=== PATIENT | male | born 2000 | race Caucasian/White ===

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

== ENCOUNTER 2020-08-26 19:35 | Emergency (ER) | payer OTHER, BC, SELFPAY ==
[2020-08-26 19:53] VITALS: RESP 18; TEMP 36.5; O2SAT 99; BMI 18.6
--- NOTE | 2020-08-26 20:04 | HMH.EDUTC ---
[facility] [place] Clinical Impression: Burn of left leg Qualifiers: Encounter type: initial encounter Burn degree: partial thickness (2nd degree) Qualified Code(s): T24.202A - Burn of second degree of unspecified site of left lower limb, except ankle and foot, initial encounter Disposition: Home, Self-Care Condition on Discharge: Good Instructions: DI for Lakhani, Mupirocin Additional Instructions: Keep the wound clean and dry. Follow up with your primary care physician. You need to have the wound rechecked within the next 48 to 72 hours. Apply the topical medication and take the oral medication as directed. GO TO THE ER FOR ANY WORSENING SYMPTOMS OR CONCERN, ESPECIALLY ANY FEVER, CHILLS, AND OTHER SIGNS OF INFECTION Prescriptions: Sulfamethoxazole/Trimethoprim [Bactrim DS tablet] 1 each PO BID 10 Days #20 tab Transmission Status: Received by [facility] #[id number] Mupirocin [Bactroban 2% Ointment 22gm tube] 1 applicatio TP TID 7 Days #1 tube Transmission Status: Received by [facility] #[id number] cephALEXin [cephALEXin 500mg capsule] 500 mg PO Q6H 10 Days #40 cap Transmission Status: Received by [facility] #[id number] Referrals: Sanjay Rebollar MD [Primary Care Provider] - Forms: Work/School Release Time of Disposition: 20:19 Medical Decision Making - Medical Records Medical records reviewed: No: I reviewed the patient's medical records. - Javy Inquiry Pt receiving controlled substance: No Vital Signs: 08/26/20 19:53 08/26/20 20:25 Temperature 97.7 F 97.6 F Temperature Source Oral Oral Pulse Rate 86 Respiratory Rate 18 18 Blood Pressure 124/86 02 Sat by Pulse Oximetry 99 Oxygen Delivery Method Room Air Room Air Orders (Tests/Meds): ED MEDICATIONS Discontinued Medications Generic Name Dose Route Start Last Admin Trade Name Freq PRN Reason Stop Dose Admin Trimethoprim/Sulfamethoxazole 1 each 08/26/20 20:22 08/26/20 20:24 Sulfa/Trimethoprim 1 Tablet PO 08/26/20 20:23 1 each ONCE ONE Administration Protocol ORDERS Category Date Time Status Wound Culture and Gram Stain Stat Micro 08/26/20 20:20 Results [facility] [place] - General Stated complaint: possible infection in burn on L leg Time Seen by Provider: 08/26/20 20:04 Mode of Arrival: Ambulatory Source of Information: Patient Limitations: No Limitations Description of Symptoms (Recalled from Triage Doc. by RN): burn on leg from last wednesday, worried may be infected HEENT Symptoms (Recalled from RN notes): No Resp Symptoms (Recalled from RN notes): No Skin Symptoms (Recalled from RN notes): Yes MS Symptoms (Recalled from RN notes): No Functional Status (Recalled from RN notes): na - History of Present Illness Provider Complaint: He states that he bumped into a very hot pipe with his left lower leg 4 days ago. He c/o redness and clear drainage at the site. He denies any fever or chills. - Related Data Home Medications Medication Instructions Recorded Confirmed Lisdexamfetamine Dimesylate 70 mg PO DAILY 09/10/19 09/10/19 [Vyvanse] Previous Rx's Medication Instructions Recorded Mupirocin [Bactroban 2% Ointment 1 applicatio TP TID 7 Days #1 tube 08/26/20 22gm tube] Sulfamethoxazole/Trimethoprim 1 each PO BID 10 Days #20 tab 08/26/20 [Bactrim DS tablet] cephALEXin [cephALEXin 500mg 500 mg PO Q6H 10 Days #40 cap 08/26/20 capsule] Allergies Allergy/AdvReac Type Severity Reaction Status Date / Time No Known Allergies Allergy Unverified 04/27/17 14:02 - Worker's Comp Is this a Worker's Comp case?: No [facility] History - Hepatitis A Screen Drug use history?: No High risk sexual behaviors?: No History of sexually transmitted infection?: No Currently employed?: No Childcare worker?: No Do you have indoor plumbing?: Yes Do you have electricity?: Yes Attestation statement:: This patient has been screened for Hepatitis A risk factors. I have
[2020-08-26 20:25] VITALS: BP 124/86; PULSE 86; RESP 18; TEMP 36.4; O2SAT 99
== END 2020-08-26 20:28 | disposition home or self-care (01) ==
PROVIDERS: Emergency Provider Nurse Practitioner Family; PCP Pediatrics
DX: T24.202A Burn of second degree of unspecified site of left lower limb, except ankle and foot, initial encounter (principal); X16.XXXA Contact with hot heating appliances, radiators and pipes, initial encounter; Y92.9 Unspecified place or not applicable
CPT/HCPCS: 87070; 87077; 87186; 87205; 99202; G0463

== ENCOUNTER 2020-10-27 13:35 | Emergency (ER) | payer OTHER, BC, SELFPAY ==
[2020-10-27 14:03] VITALS: BP 138/87; PULSE 82; RESP 20; TEMP 36.9; O2SAT 96; BMI 18.6
[2020-10-27 14:12] VITALS: BP 138/87; PULSE 82; RESP 20; TEMP 36.9
--- NOTE | 2020-10-27 14:12 | HMH.EDUTC ---
[facility] [place] Dis[place] Clinical Impression: Burn Disposition: Home, Self-Care Condition on Discharge: Good Instructions: Minor Lakhani (Alternative Therapy), DI for Lakhani, How to Take Care of a Burn Additional Instructions: apply cream clean area bid and apply cream take antibiotics as ordered if any concerns return or be een in ed follow up with pcp Prescriptions: cephALEXin [Cephalexin 500mg Tab] 500 mg PO BID 7 Days #14 tab Prescription Printed Silver Sulfadiazine [Silvadene Cream 50gm] 50 gm TP BID 14 Days #1 bottle Prescription Printed Referrals: Sanjay Rebollar MD [Primary Care Provider] - Forms: Work/School Release Time of Disposition: 14:17 Medical Decision Making - Javy Inquiry Pt receiving controlled substance: No Vital Signs: 10/27/20 14:03 Temperature 98.4 F Temperature Source Oral Pulse Rate [Right] 82 Respiratory Rate 20 Blood Pressure [Right Arm] 138/87 Blood Pressure Mean [Right Arm] 104 Blood Pressure Source [Right Arm] Automatic Cuff Blood Pressure Position [Right Arm] Sitting 02 Sat by Pulse Oximetry 96 [facility] [place] HPI - General Chief complaint: Urgent [facility] Center Stated complaint: a/o 10/26/2020 10:30 pm at work Time Seen by Provider: 10/27/20 14:12 Mode of Arrival: Ambulatory Source of Information: Patient Limitations: No Limitations Description of Symptoms (Recalled from Triage Doc. by RN): pt has a burn on the top of his R foot and his last two toes. pt staes a steam table at work burnt him. pt requests a work note. HEENT Symptoms (Recalled from RN notes): No Resp Symptoms (Recalled from RN notes): No Skin Symptoms (Recalled from RN notes): Yes (burn on top portion of right foot) MS Symptoms (Recalled from RN notes): No Functional Status (Recalled from RN notes): na - History of Present Illness Provider Complaint: 19 yr old male presents for a burn on the top of his R foot and his last two toes. pt states a steam table at work burnt him. Pt states he has been putting silvatine cream on the burn. pt requests a work note. - Related Data Home Medications Medication Instructions Recorded Confirmed Lisdexamfetamine Dimesylate 70 mg PO DAILY 09/10/19 09/10/19 [Vyvanse] Previous Rx's Medication Instructions Recorded Mupirocin [Bactroban 2% Ointment 1 applicatio TP TID 7 Days #1 tube 08/26/20 22gm tube] Sulfamethoxazole/Trimethoprim 1 each PO BID 10 Days #20 tab 08/26/20 [Bactrim DS tablet] cephALEXin [cephALEXin 500mg 500 mg PO Q6H 10 Days #40 cap 08/26/20 capsule] Silver Sulfadiazine [Silvadene 50 gm TP BID 14 Days #1 bottle 10/27/20 Cream 50gm] cephALEXin [Cephalexin 500mg Tab] 500 mg PO BID 7 Days #14 tab 10/27/20 Allergies Allergy/AdvReac Type Severity Reaction Status Date / Time No Known Allergies Allergy Verified 10/27/20 14:06 - Worker's Comp Is this a Worker's Comp case?: No [facility] History - Hepatitis A Screen Drug use history?: No High risk sexual behaviors?: No History of sexually transmitted infection?: No Currently employed?: No Childcare worker?: No Do you have indoor plumbing?: Yes Do you have electricity?: Yes Attestation statement:: This patient has been screened for Hepatitis A risk factors. I have reviewed the patient's past medical history: Yes Medical History: Denies:: Diabetes Mellitus Type 1, Diabetes Mellitus Type 2 - Social History Alcohol Intake: never Substance Use Type: inhalants Occupational Status: unemployed ROS Obtained: Yes Systems reviewed as appropriate & no additional complaints - Constitutional Constitutional: Reports system reviewed and no additional complaints, except as docu, Denies body ache - Eyes Eyes: Reports system reviewed and no additional complaints, except as docu, Denies blurry vision - ENT Ears, Nose, Mouth, and Throat: Reports system reviewed and no additional complaints, except as docu, Denies bleeding gums, Denies sore throat - Cardiovascular Cardiovascular: Repor
== END 2020-10-27 14:51 | disposition home or self-care (01) ==
PROVIDERS: Emergency Provider Nurse Practitioner Family; PCP Pediatrics
DX: T25.221A Burn of second degree of right foot, initial encounter (principal); X13.1XXA Other contact with steam and other hot vapors, initial encounter; Y92.69 Other specified industrial and construction area as the place of occurrence of the external cause; Y99.0 Civilian activity done for income or pay; Z23 Encounter for immunization
CPT/HCPCS: 90471; 90715; 99202; G0463

== ENCOUNTER 2021-09-17 01:20 | Emergency (ER) | payer BC, SELFPAY ==
[2021-09-17 01:21] VITALS: BP 150/97; PULSE 102; RESP 16; TEMP 36.8; O2SAT 97; BMI 19.7
--- NOTE | 2021-09-17 02:52 | HMH.EDEPIS ---
ED Disposition Clinical Impression: Epistaxis Disposition: Home, Self-Care Condition on Discharge: Good Instructions: DI for Nosebleed Additional Instructions: see pcp for follow up Referrals: Provider,Referral, [Primary Care Provider] - - Critical Care Critical Care Time: No Attestation: On 09/17/21, the high probability of a clinically significant, sudden or life threatening deterioration of the following system(s) required my full and direct attention, intervention and personal management. The time I documented below is in addition to time spent performing reported procedures but includes the following listed in this critical care notation. Medical Decision Making - Medical Records Medical records reviewed: Yes: I reviewed the patient's medical records. - Javy Inquiry Pt receiving controlled substance: No Vital Signs: 09/17/21 01:21 Temperature 98.3 F Temperature Source Oral Pulse Rate [Left Radial] 102 H Respiratory Rate 16 Blood Pressure [Right Arm] 150/97 H Blood Pressure Mean [Right Arm] 114 Blood Pressure Source [Right Arm] Automatic Cuff 02 Sat by Pulse Oximetry 97 Oxygen Delivery Method Room Air - Lab Data Lab results reviewed: Yes: I reviewed the patient's lab results. Medical Decision Narrative: stable exam and no active bleeding Epistaxis HPI - General Chief complaint: Epistaxis Stated complaint: nose bleed Time Seen by Provider: 09/17/21 02:52 Mode of Arrival: Ambulatory Source of Information: Patient, Relative, Medical Record Limitations: No Limitations Description of Symptoms (Recalled from ER Triage Doc. by RN): NOSE BLEED THAT IS NOT STOPPING WITH AT HOME INTERVENTIONS. - History of Present Illness HPI Narrative: atraumatic rt sided nose bleed complaint: epistaxis Location: right nostril Onset (ago): hour(s) Duration: now resolved Treatment prior to arrival: stuffed nose with tissue - Related Data Home Medications Medication Instructions Recorded Confirmed Lisdexamfetamine Dimesylate 70 mg PO DAILY 09/10/19 09/17/21 [Vyvanse] Allergies Allergy/AdvReac Type Severity Reaction Status Date / Time No Known Allergies Allergy Verified 10/27/20 14:06 [facility] History - Hepatitis A Screen Attestation statement:: This patient has been screened for Hepatitis A risk factors. I have reviewed the patient's past medical history: Yes Medical History: Denies:: Diabetes Mellitus Type 1, Diabetes Mellitus Type 2 - Social History Alcohol Intake: never Substance Use Type: inhalants Occupational Status: unemployed ROS Obtained: Yes All systems reviewed & no additional complaints - Constitutional Constitutional: Denies fever(s) - Eyes Eyes: Denies change in vision - ENT Ears, Nose, Mouth, and Throat: Reports as per HPI, Reports epistaxis, Denies nasal discharge - Cardiovascular Cardiovascular: Denies chest pain - Respiratory Respiratory: Denies shortness of breath - Gastrointestinal Gastrointestingal: Denies: vomiting - Genitourinary Male Genitourinary: Denies hematuria - Musculoskeletal Musculoskeletal: Denies joint pain - Integumentary/Breasts Skin/Breast: Denies rash - Neurologic Neurologic: Denies focal weakness Physical Exam - General General appearance: alert - Head Head exam: normocephalic - Eye Eye exam: Present: PERRL, EOMI. Absent: scleral icterus - ENT ENT exam: Present: mucous membranes moist - Expanded ENT Exam Nasal speculum exam: Right: epistaxis - Neck Neck exam: Present: trachea midline - Respiratory Respiratory exam: Present: normal lung sounds bilaterally. Absent: respiratory distress - Cardiovascular Cardiovascular exam: Present: regular rate. Absent: systolic murmur - Abdominal Exam Abdominal exam: Present: soft - Extremities Exam Extremities exam: Present: full ROM - Neurological Exam Neurological exam: Present: alert, oriented X3, CN II-XII intact. Absent:
[2021-09-17 03:04] VITALS: BP 122/73; PULSE 87; RESP 18; TEMP 36.7; O2SAT 99
== END 2021-09-17 03:11 | disposition home or self-care (01) ==
PROVIDERS: Emergency Provider Emergency Medicine
DX: R04.0 Epistaxis (principal)
CPT/HCPCS: 99281